=== PATIENT | female | born 1960 | race Caucasian/White ===

== ENCOUNTER → 2016-09-07 | Outpatient (CLI) | payer MEDICAID ==
[~2016-09-07] MED LIST: IOPAMIDOL (ISOVUE 370) 100 ML BTL IV ONE
== END ==
LOC: FIMAGING 12:03
PROVIDERS: ATTEND Internal Medicine Hematology & Oncology
DX: T82.828A Fibrosis due to vascular prosthetic devices, implants and grafts, initial encounter (principal)
CPT/HCPCS: Q9967

== ENCOUNTER → 2017-08-17 | Outpatient (CLI) | payer MEDICAID | LOC: FIMAGING 14:37 | PROVIDERS: ATTEND Internal Medicine Hematology & Oncology | DX: Z12.31 Encounter for screening mammogram for malignant neoplasm of breast (principal); Z85.3 Personal history of malignant neoplasm of breast; Z90.12 Acquired absence of left breast and nipple ==

== ENCOUNTER → 2018-02-10 | Outpatient (CLI) | payer MEDICAID | LOC: BMCIMAGING 10:24 | PROVIDERS: ATTEND Physician Assistant | DX: M50.322 Other cervical disc degeneration at C5-C6 level (principal); M51.34 Other intervertebral disc degeneration, thoracic region; M46.92 Unspecified inflammatory spondylopathy, cervical region ==

== ENCOUNTER 2018-02-22 21:49 | Inpatient (IN) | payer MEDICAID ==
--- NOTE | 2018-02-22 22:08 | EDPHY ---
H & P Stated Complaint: MRI today, unstable spine Time Seen by Provider: 02/22/18 21:59 HPI/ROS: CHIEF COMPLAINT: Spinal metastases HISTORY OF PRESENT ILLNESS: 57-year-old female history of left breast cancer arrives via private vehicle after she received the results of her MRI this evening. She notes several months of progressive bilateral upper extremity pain , weakness with extension of the right elbow, outpatient MRI of the cervical thoracic spine ordered patient was contacted this evening by her primary care provider informing her of bony metastatic disease with pathologic fracture at C7 with epidural metastatic disease noted, told to go to the ER for evaluation admission. She notes no acute complaints, no neck pain. No chest pain. No dyspnea. No headache. No fever or chills. PRIMARY CARE PROVIDER: Nichole Rosa PA-C REVIEW OF SYSTEMS: 10 systems reviewed and negative with the exception of the elements mentioned in the history of present illness PAST MEDICAL & SURGICAL HISTORY: Breast cancer. SOCIAL HISTORY: nonsmoker PHYSICAL EXAM (Prior to examination, patient consented to physical exam, hands were washed and my usual and customary physical exam procedures followed) 1) GENERAL: Well-developed, well-nourished, alert and oriented. Appears to be in no acute distress. 2) HEAD: Normocephalic, atraumatic. Symmetrical faces 3) HEENT: Pupils equal, round, reactive to light bilaterally. Sclera anicteric. Symmetrical faces 4) NECK: Full range of motion, no meningeal signs. 5) LUNGS: Clear auscultation bilaterally, no wheezes, no rhonchi, no retractions. 6) HEART: Regular rate and rhythm, no murmur, no heave, no gallop. 7) ABDOMEN: No guarding, no rebound, no focal tenderness, negative McBurney's, negative Rich's, negative Rovsing's, negative peritoneal sign, 8) MUSCULOSKELETAL: Moving all extremities, no focal areas of tenderness, no obvious trauma. No peripheral edema or discoloration. 9) BACK: No CVA tenderness, no midline vertebral tenderness, no fluctuance, no step-off, no obvious trauma, no visual or palpable abnormality. 10) SKIN: No rash, no petechiae. 11) Psychiatric: Patient is oriented X 3, there is no agitation. 12)_ NEURO: Awake, alert, and oriented to person, place and time. Answers questions appropriately. Right elbow extension weakness noted. DIFFERENTIAL DIAGNOSIS: In no particular order including but not limited to pathologic fracture, metastatic disease, stable cervical fracture - Personal History Tetanus Vaccine Date: < 10 years - Medical/Surgical History Hx Asthma: No Hx Chronic Respiratory Disease: No Hx Diabetes: No Hx Cardiac Disease: No Hx Renal Disease: No Hx Cirrhosis: No Hx Alcoholism: No Hx HIV/AIDS: No Other PMH: breast CA, hypothyroid - Social History Smoking Status: Never smoked Constitutional: Initial Vital Signs Temperature (C) 36.5 C 02/22/18 21:52 Heart Rate 95 02/22/18 21:52 Respiratory Rate 20 02/22/18 21:52 Blood Pressure 134/86 H 02/22/18 21:52 O2 Sat (%) 93 02/22/18 21:52 O2 Delivery Mode Room Air Allergies/Adverse Reactions: No Known Allergies Allergy (Unverified 10/14/15 13:17) Home Medications: Medication Instructions Recorded Herbals/Supplements -Info Only 1 each PO AD 10/23/11 Ibuprofen [Motrin 600 mg (RX)] 600 mg PO DAILY PRN 10/23/11 Levothyroxine [Synthroid 137 mcg 137 mcg PO Q2D 10/23/11 (RX)] Levothyroxine [Synthroid 150 mcg 150 mcg PO Q2D 10/23/11 (RX)] Pharmacy Completed 10/23/11 10/23/11 Medical Decision Making ED Course/Re-evaluation: 10:06 p.m.: [place] J collar placed upon entry into the room. Patient noted to have weakness right elbow extension. I reviewed her imaging studies. Will plan on admission to hospitalist with consultation with Neurosurgery 10:25 p.m.: Consultation with Dr. Wicho Moody Neurosurgery who will consult. Will admit patient to hospitalist service. Care of patient under supervision of secondary supervising physician Dr Alicea with whom I discussed case. 10:30 p.m.: Consultation with hospitalist Dr. Massey who will admit - Data Points Laboratory Results: Laboratory Results 02/22/18 22:15 02/22/18 22:15 02/22/18 02/22/18 02/22/18 22:15 22:15 22:15 WBC 10.27 10^3/uL H 10^3/uL (3.80-9.50) RBC 5.14 10^6/uL 10^6/uL (4.18-5.33) Hgb 14.1 g/dL g/dL (12.6-16.3) Hct 41.8 % % (38.0-47.0) MCV 81.3 fL L fL (81.5-99.8) MCH 27.4 pg L pg (27.9-34.1) MCHC 33.7 g/dL g/dL (32.4-36.7) RDW 15.9 % H % (11.5-15.2) Plt Count 130 10^3/uL L 10^3/uL (150-400) MPV 10.0 fL fL (8.7-11.7) Neut % (Auto) 55.8 % % (39.3-74.2) Lymph % (Auto) 34.0 % % (15.0-45.0) [place] % (Auto) 7.0 % % (4.5-13.0) Eos % (Auto) 2.3 % % (0.6-7.6) Baso % (Auto) 0.4 % % (0.3-1.7) Nucleat RBC Rel Count 0.0 % % (0.0-0.2) Absolute Neuts (auto) 5.73 10^3/uL 10^3/uL (1.70-6.50) Absolute Lymphs (auto) 3.49 10^3/uL H 10^3/uL (1.00-3.00) Absolute Monos (auto) 0.72 10^3/uL 10^3/uL (0.30-0.80) Absolute Eos (auto) 0.24 10^3/uL 10^3/uL (0.03-0.40) Absolute Basos (auto) 0.04 10^3/uL 10^3/uL (0.02-0.10) Absolute Nucleated RBC 0.00 10^3/uL 10^3/uL (0-0.01) Immature Gran % 0.5 % % (0.0-1.1) Immature Gran # 0.05 10^3/uL 10^3/uL (0.00-0.10) PT 12.6 SEC SEC (12.0-15.0) INR 0.92 (0.83-1.16) APTT 24.6 SEC SEC (23.0-38.0) Sodium 138 mEq/L mEq/L (135-145) Potassium 4.1 mEq/L mEq/L (3.5-5.2) Chloride 106 mEq/L mEq/L (97-110) Carbon Dioxide 23 mEq/l mEq/l (22-31) Anion Gap 9 mEq/L mEq/L (6-14) BUN 10 mg/dL mg/dL (7-23) Creatinine 0.7 mg/dL mg/dL (0.6-1.0) Estimated GFR > 60 Glucose 120 mg/dL H mg/dL (70-100) Calcium 9.3 mg/dL mg/dL (8.5-10.4) Medications Given: Discontinued Medications Hydrocodone Bitart/Acetaminophen ([place] 5/325) 2 tab PO EDNOW ONE Stop: 02/22/18 22:33 Last Admin: 02/22/18 22:36 Dose: 2 tab Departure - Departure Disposition: [facility] Inpatient Acute Clinical Impression: Fracture of cervical spine, Fracture of thoracic spine Pathologic compression fracture of spine Qualifiers: Encounter type: initial encounter Qualified Code(s): M48.50XA - Collapsed vertebra, not elsewhere classified, site unspecified, initial encounter for fracture Condition: Fair
[2018-02-22 22:22] LABS: PLATELET COUNT 130 10^3/uL (150-400)
[2018-02-22 22:30] LABS: INR 0.92 (0.83-1.16); PROTIME(PATIENT) 12.6 SEC (12.0-15.0)
[2018-02-22] MEDS ORDERED: HYDROCODONE/APAP 5/325 TAB PO ONE (22:32)
[2018-02-22] MEDS ORDERED: ACETAMINOPHEN 325 MG TAB PO PRN (22:36)
[2018-02-22] MEDS ORDERED: ONDANSETRON DISINTEGRATING 4 MG TAB PO PRN (22:36)
[2018-02-22] MEDS ORDERED: NS 1,000 ML IV SCH (22:45)
--- NOTE | 2018-02-22 23:25 | PDGENHP ---
History and Physical - Chief Complaint Neck pain, arm pain - History of Present Illness Source-patient provides history appears reliable. EMR was reviewed and case discussed with ED provider. Oncologist - Dr. Meza HPI - this is a pleasant 57-year-old female with past medical history significant for left breast cancer last chemo a year ago, hypothyroidism, remote history of traumatic C1, T1, T2 fracture who presents emergency department today with complaints of ongoing bilateral upper neck, back and extremity pain for the past month. Patient underwent a outpatient MRI that was significant for diffuse bony Mets and C7 pathologic fracture. Patient was referred to the emergency department. She denies any fevers chills. She has had ongoing weight loss secondary declined appetite over the past month since onset of her acute neck pain. She denies any nausea, vomiting , abdominal pain , dysuria, hematuria or focal deficits. Patient denies any night sweats. History Information - Allergies/Home Medication List Allergies/Adverse Reactions: No Known Allergies Allergy (Unverified 10/14/15 13:17) Home Medications: Herbals/Supplements -Info Only 1 each PO AD 10/23/11 [Last Taken 10/22/11] Ibuprofen [Motrin 600 mg (RX)] 600 mg PO DAILY PRN 10/23/11 [Last Taken 10/22/11 ] Levothyroxine [Synthroid 137 mcg (RX)] 137 mcg PO Q2D 10/23/11 [Last Taken 10/21] Levothyroxine [Synthroid 150 mcg (RX)] 150 mcg PO Q2D 10/23/11 [Last Taken 10/20] Pharmacy Completed 10/23/11 10/23/11 [Last Taken 10/23/11] I have personally reviewed and updated: family history, medical history, social history, surgical history - Past Medical History Additional medical history: Breast cancer. Hypothyroidism. Traumatic C1, T1, T2 fracture after fall from rock climbing 2016 - Surgical History Additional surgical history: IPC ostomy repair x3. Left breast mastectomy. 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 - Family History Additional family history: Pre DM - Social History Smoking Status: Never smoked Alcohol Use: Occasionally Drug Use: Marijuana (Occasional) Additional social history: Patient is is 3 adult children. Cor status- full. Review of Systems Review of Systems: ROS: 10pt was reviewed & negative except for what was stated in HPI & below Constitutional: Reports: weight loss (See HPI). Denies: chills, fever EENMT: Reports: no symptoms Cardiac: Reports: no symptoms Respiratory: Reports: no symptoms Gastrointestinal: Reports: no symptoms Genitourinary: Reports: no symptoms Muscolosketal: Reports: back pain, joint pain, neck pain Skin: Reports: no symptoms Neurological: Reports: paresthesia (Bilateral arms.) Hematologic/Lymphatic: Reports: no symptoms Immunologic/Allergy: Reports: no symptoms Physical Exam Physical Exam: Selected Entries 02/22/18 21:52 Heart Rate 95 Respiratory 20 Rate O2 Sat (%) 93 Temperature (C) 36.5 C Blood Pressure 134/86 H Mean Arterial 102 H Pressure (MAP) Temp Pulse Resp BP Pulse Ox 36.8 C 80 18 137/91 H 91 L 02/22/18 23:05 02/22/18 23:05 02/22/18 23:05 02/22/18 23:05 02/22/18 23:05 Constitutional: no apparent distress, uncomfortable, other (NAD. Patient is lying quietly on gurney. and 2 children are at bedside. Patient does appear uncomfortable but no acute distress.) Eyes: PERRL (Slightly decreased reactivity light bilaterally and symmetric.), anicteric sclera, EOMI, No scleral injection Ears, Nose, Mouth, Throat: dry mucous membranes, other (No oropharyngeal erythema or exudates. No nasal discharge.), No poor dentition Cardiovascular: regular rate and rhythym, no murmur, rub, or gallop, pulses symmetric bilaterally, other (Left breast absent.), No edema Peripheral Pulses: 1+: dorsalis-pedis (R), dorsalis-pedis (L) Respiratory: no respiratory distress, no rales or rhonchi, clear to auscultation , No expiratory wheeze, No inspiratory crackles, No respiratory distress Gastrointestinal: normoactive bowel sounds, soft, non-tender abdomen, no palpable masses, No distension Genitourinary: no bladder tenderness, No alvarez in urethra Skin: warm, normal color, no rashes or abrasions, No rash Musculoskeletal: other (Patient is able to move upper and lower extremities while lying in gurney. Application Chemist strength is slightly diminished 4 to 5/5 in the upper lower extremities.), No generalized weakness Neurologic: AAOx3, sensation intact bilaterally, other (Grossly nonfocal exam.) , No facial droop Psychiatric: interacting appropriately, not anxious, not encephalopathic, thought process linear, other (Patient thought process, content, questions are appropriate. Patient is pleasant and cooperative.), No anxious, No depressed Lab Data & Imaging Review 02/22/18 22:15 02/22/18 22:15 WBC 10.27 10^3/uL (3.80-9.50) H 02/22/18 22:15 RBC 5.14 10^6/uL (4.18-5.33) 02/22/18 22:15 Hgb 14.1 g/dL (12.6-16.3) 02/22/18 22:15 Hct 41.8 % (38.0-47.0) 02/22/18 22:15 MCV 81.3 fL (81.5-99.8) L 02/22/18 22:15 MCH 27.4 pg (27.9-34.1) L 02/22/18:15 MCHC 33.7 g/dL (32.4-36.7) 02/22/18 22:15 RDW 15.9 % (11.5-15.2) H 02/22/18 22:15 Plt Count 130 10^3/uL (150-400) L 02/22/18:15 MPV 10.0 fL (8.7-11.7) 02/22/18 22:15 Neut % (Auto) 55.8 % (39.3-74.2) 02/22/18:15 Lymph % (Auto) 34.0 % (15.0-45.0) 02/22/18 22:15 [place] % (Auto) 7.0 % (4.5-13.0) 02/22/18 22:15 Eos % (Auto) 2.3 % (0.6-7.6) 02/22/18:15 Baso % (Auto) 0.4 % (0.3-1.7) 02/22/18 22:15 Nucleat RBC Rel Count 0.0 % (0.0-0.2) 02/22/18 22:15 Absolute Neuts (auto) 5.73 10^3/uL (1.70-6.50) 02/22/18 22:15 Absolute Lymphs (auto) 3.49 10^3/uL (1.00-3.00) H 02/22/18 22:15 Absolute Monos (auto) 0.72 10^3/uL (0.30-0.80) 02/22/18 22:15 Absolute Eos (auto) 0.24 10^3/uL (0.03-0.40) 02/22/18 22:15 Absolute Basos (auto) 0.04 10^3/uL (0.02-0.10) 02/22/18 22:15 Absolute Nucleated RBC 0.00 10^3/uL (0-0.01) 02/22/18 22:15 Immature Gran % 0.5 % (0.0-1.1) 02/22/18:15 Immature Gran # 0.05 10^3/uL (0.00-0.10) 02/22/18 22:15 PT 12.6 SEC (12.0-15.0) 02/22/18 22:15 INR 0.92 (0.83-1.16) 02/22/18 22:15 APTT 24.6 SEC (23.0-38.0) 02/22/18 22:15 Sodium 138 mEq/L (135-145) 02/22/18 22:15 Potassium 4.1 mEq/L (3.5-5.2) 02/22/18 22:15 Chloride 106 mEq/L (97-110) 02/22/18 22:15 Carbon Dioxide 23 mEq/l (22-31) 02/22/18 22:15 Anion Gap 9 mEq/L (6-14) 02/22/18 22:15 BUN 10 mg/dL (7-23) 02/22/18 22:15 Creatinine 0.7 mg/dL (0.6-1.0) 02/22/18 22:15 Estimated GFR > 60 02/22/18 22:15 Glucose 120 mg/dL (70-100) H 02/22/18 22:15 Calcium 9.3 mg/dL (8.5-10.4) 02/22/18 22:15 Imaging Review: MRI of the Cervical Spine (Without Contrast) History: Pain, M54.6 upper extremity paresthesias, history of breast cancer in 2016 Technique: Sagittal T1, FSE T2 and STIR images. Axial FSE T2 and GRE images. Comparison: Plain films February 10, 2018 Findings: There is diffuse abnormal bone marrow signal in the C5-C6-C7 T1 and T2 vertebral bodies and posterior elements consistent with metastatic disease. There is more limited metastatic disease in T3-T4 and T5 vertebral bodies. There is a gibbus compression of the C7 vertebral body associated with bulging posteriorly into the neural canal and abnormal circumferential soft tissue thickening around the neural canal at this level, possibly eccentric to the left of midline. There is minimal CSF remaining in front of or behind the cervical cord at this level. There is 3- 4 mm of spondylolisthesis at C6-C7. It is difficult to exclude a possible left locked facet or subluxation at C5-C6. There is no evidence for cervical cord edema or hemorrhage. CSF remains in front of and behind the cord above and below this level. Incidentally noted are moderate size right-sided, off midline degenerative osteophytes at C5-C6. Impression: Bony metastatic disease worst between C5 and T2, with a pathologic severe compression fracture at C7 associated with epidural metastatic disease and a localized spondylolisthesis with abnormally aligned facets. Recommend neurosurgical consultation and MRI with contrast for further evaluation. Results discussed with Dr. Vanessa Meléndez at 2:34 PM. MRI Thoracic Spine without contrast History: Pain, M54.6, history of breast cancer Technique: Sagittal T1, FSE T2 and STIR imaging is performed. Axial T1 and FSE T2 fat-suppressed imaging is performed. Comparison: MRI of the cervical spine done previously. Findings: At the level of the C7 compression deformity soft tissue surrounds the cervical cord and fills the left neural foramen. The left facet joints are diffusely involved at the C6-C7 level. There is extensive replacement of the T1 and T2 vertebral bodies and posterior elements. There is scattered less dominant bony metastatic disease below the T2 level involving both vertebral bodies and posterior elements. The largest vertebral body lesion is in T12 and the largest posterior element involvement is on the left involving T11. No epidural metastatic disease is identified below the T2 level. Thoracic alignment remains anatomic. There is a mild superior endplate compression deformity of T3 that is of unknown age. There are no other possibly acute thoracic compressions. There is an old Schmorl's node defect of the upper cortex of T11. Thoracic neural foramen below T2 are widely patent. CSF surrounds the cord at all levels in the thoracic region. The thoracic cord looks normal intrinsically. Impression: Scattered bony metastatic disease worst involving the cervical thoracic junction down to and including T2. Please see above. Dictated By: Esau Blankenship MD Assessment & Plan Assessment: this is a pleasant 57-year-old female with past medical history significant for left breast cancer last chemo a year ago, hypothyroidism, remote history of traumatic C1, T1, T2 fracture who presents emergency department today with complaints of ongoing bilateral upper neck, back and extremity pain for the past month. # C7 pathologic fracture - patient has been placed into a hard collar. Neurosurgery consulted and Dr. Gillespie will see the patient in the morning. # diffuse bony Mets - continue with pain control focus at this time. Patient reports that her pain is better controlled at this time. # metastatic breast cancer - Oncology consultation in the morning. Patient reports she is followed by Dr. Meza. Last reported chemotherapy was given a year ago. # thrombocytopenia - mildly decreased platelet count. Patient is not currently on any chemotherapy. Concerned that patient may also have metastatic disease to the liver. Coag studies are within normal limits. Will add on liver panel. Additional imaging once C7 fracture addressed and stabilized. Chronic medical issues #Hypothyroidism - continue levothyroxine when diet is advanced. FEN - IV fluids overnight. Patient will be made NPO pending neurosurgical evaluation and recommendations. Electrolytes are adequate in replaced p.r.n.. PPX-SCDs. Holding anticoagulation pending neurosurgery recs. Cor status-full Disposition-patient admitted to observation status at this time pending additional workup and recommendations by neurosurgery.
[2018-02-23 05:04] LABS: PLATELET COUNT 96 10^3/uL (150-400)
[2018-02-23 05:07] LABS: PROTIME(PATIENT) 13.4 SEC (12.0-15.0)
--- NOTE | 2018-02-23 09:55 | NEUSURGPN ---
Assessment/Plan: Assessment: 57 yr old F with history of breast ca and pathological C7 fx, upper extremity weakness MRI cervical shows C7 pathologic fracture with metastasis to surround vertebrae Please see full dictated consult when available Plan: -Patient has profound weakness of her right triceps 2-3/5, right 4th and 5th intrinsic/digit weakness 3/5. Discussed two options: 1. Surgery to stablize her fracture. Surgery would offer her the greatest chance of improving her strength but due to the lesions in the surrounding vertebrae-this may pose an issue with hardware placement. 2. CLINICAL SERVICES MANAGER brace-in effort to stabilize/heal fracture with time but will not address nerve involvement. -We would like Oncology to re-stage her CA to determine plan -Dr Moody will see patient as well later this morning to discuss options -Please call neurosurgery with questions/concerns Subjective: arm weakness and neck pain, in collar Objective: AxOx 4 Right triceps 2-3/5, right 4th adn 5th digits 3/5 5/5 Bilateral biceps and deltoids In [place] J collar Neuro Check Frequency: per routine Urinary Catheter in Place: No - Physician Discussed Patient with : [place] Patient Seen by : [place] Neurosurgery Physical Exam - Vitals, I&O, Labs I and O 02/22/18 02/23/18 02/24/18 05:59 05:59 05:59 Intake Total 350 Output Total 0 Balance 350 Weight 81.647 kg Intake: Oral (ml) 350 Output: Urine (ml) 0 Other: Number of Voids Toilet 1 Vital Signs Temp Pulse Resp BP Pulse Ox 36.6 C 77 14 157/96 H 97 02/23/18 08:36 02/23/18 08:36 02/23/18 08:36 02/23/18 08:36 02/23/18 08:36 Laboratory Results 02/23/18 04:43 02/23/18 04:43 ICD10 Worksheet Patient Problems: Problems Problem Status Onset Fracture of cervical spine Acute Fracture of thoracic spine Acute Pathologic compression fracture of spine Acute
--- NOTE | 2018-02-23 10:28 | HOSPPROG ---
Hospitalist Progress Note Assessment/Plan: 57yo F with left sided breast cancer now found to have C7 pathologic fracture. 1. C7 pathologic fracture: With resultant neuro deficits (right triceps, intrinsic hand muscles). No cord edema on CT. - Neurosurgery consulted. Considering surgical management if possible vs bracing - Pain controlled on current regimen 2. Left sided breast cancer: Now with metastatic disease (vertebral bodies and epidural). Followed by Dr Meza, she reports not having any scans for 1 year. Previously had chemotherapy and XRT. - Oncology consult placed 3. Thrombocytopenia: Mild. Check LFTs. Monitor. 4. Hypothyroid: Continue home LT4. VTE ppx: SCDs Code: full Dispo: Possibly switch to inpatient pending surgical eval. Subjective: Pain with movement but none when lying in bed. No trauma that she can recall to neck. Right arm/hand weakness Objective: Vital Signs Temp Pulse Resp BP Pulse Ox 36.6 C 77 14 157/96 H 97 02/23/18 08:36 02/23/18 08:36 02/23/18 08:36 02/23/18 08:36 02/23/18 08:36 Laboratory Results 02/23/18 04:43 02/23/18 04:43 02/22/18 02/23/18 02/24/18 05:59 05:59 05:59 Intake Total 350 Output Total 0 Balance 350 PT 13.4 SEC (12.0-15.0) 02/23/18 04:43 INR 1.00 (0.83-1.16) 02/23/18 04:43 - Physical Exam Constitutional: no apparent distress, appears nourished, not in pain, other ( wearing hard c-collar) Eyes: PERRL, anicteric sclera, EOMI Ears, Nose, Mouth, Throat: moist mucous membranes, hearing normal, ears appear normal, no oral mucosal ulcers Cardiovascular: regular rate and rhythym, no murmur, rub, or gallop, No edema Respiratory: no respiratory distress, no rales or rhonchi, clear to auscultation Gastrointestinal: normoactive bowel sounds, soft, non-tender abdomen, no palpable masses Genitourinary: no bladder fullness, no bladder tenderness, no renal bruits Skin: no rashes or abrasions, no fluctuance, no induration Musculoskeletal: full muscle strength, no muscle tenderness, normal joint ROM Neurologic: AAOx3, sensation intact bilaterally, weakness (right tricep) Psychiatric: interacting appropriately, not anxious, not encephalopathic, thought process linear ICD10 Worksheet Patient Problems: Problems Problem Status Onset Fracture of cervical spine Acute Fracture of thoracic spine Acute Pathologic compression fracture of spine Acute
--- NOTE | 2018-02-23 10:38 | GCON ---
CHIEF COMPLAINT: Neck pain and arm weakness. HISTORY OF PRESENT ILLNESS: The patient is a 57-year-old female with past medical history that was significant for left breast cancer in which she underwent chemo approximately 1-1/2 years ago. Her oncologist is Dr. Meza. She also has history of a fall approximately 5 years ago in which she fractured several of her cervical vertebrae. Those fractures were treated with a brace at the time and did not require any surgical intervention. The patient presented to the emergency department with progressive problems with bilateral hand weakness and underwent MRI of the cervical spine as an outpatient which was significant for diffuse bony metastasis and a C7 pathological fracture. The patient states that her left arm weakness has improved some with physical therapy, but her right arm "does not seem to work" and she is unable to move her 4th and 5th digits of the right hand. The patient has neck pain. She denies any difficulty with walking and balance and denies any incontinence issues with her bowel or bladder. REVIEW OF SYSTEMS: A 10-point review of systems was performed and negative aside from what was mentioned in the HPI. ALLERGIES: No known drug allergies. HOME MEDICATIONS: 1. Herbal supplements. 2. Ibuprofen p.r.n. 3. Levothyroxine. PAST MEDICAL HISTORY: Breast cancer, hypothyroid, traumatic C1, T1, and T2 fractures after a fall when rock climbing several years ago. 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 FAMILY HISTORY: The patient denies any breast cancer in her family history but does note that her grandfather had lung cancer but was a heavy smoker. SOCIAL HISTORY: Patient denies any alcohol use currently. She has never smoked cigarettes. She uses marijuana daily. Denies any other illicit drug use. The patient is and has been unemployed since her original diagnosis of breast cancer 1-1/2 years ago. DIAGNOSTICS LABORATORY RESULTS: White blood cell count 7.52, hemoglobin 13.7, hematocrit 42, platelets 96. PT/INR PT is 13.4 and INR 1.0. APTT is 25.2. Sodium is 138, potassium 4.0, BUN 8, creatinine 0.6, glucose 109. DIAGNOSTIC IMAGING: MRI of the cervical spine performed without contrast from an outside facility demonstrated diffuse abnormal bone marrow signal in C5-C6, C6-C7, C7-T1, and T2 vertebral bodies. There was more limited metastatic disease in T3-T4 and T5 vertebral bodies. There is a Gibbus compression fracture of the C7 vertebral body associated with bulging posteriorly into the neural canal and abnormal circumferential soft tissue thickening around the neural canal at this level. There is minimal CSF remaining in the front of or behind the cervical cord at this level. There is 3-4 mm of spondylolisthesis at C6-C7. There is no evidence for cervical cord edema or hemorrhage. PHYSICAL EXAM: VITAL SIGNS: Blood pressure is 157/96, heart rate is 77, respiratory rate is 14, oxygen saturation is 97% on 1 L nasal cannula. Temperature is 36.6 degrees Celsius. HEENT: Head is normocephalic and atraumatic. Pupils are equal, round, and reactive to light. EOMI is intact. Full visual cole by confrontation. CARDIAC AND RESPIRATORY: Deferred. GENITOURINARY, RECTAL, AND ABDOMEN: Deferred. NEUROLOGIC: The patient is awake and alert and oriented to name, place, location, date, time, and situation. Her memory is intact to immediate past and current events. Speech: No aphasia or dysphonia. Cranial nerves 2-12 are grossly intact. Motor: The patient has 2-3/5 right triceps weakness with 2-3/5 right 4th and 5th intrinsic digits weakness, mild left ironing pleater weakness 5-/5. The patient has 5/5 strength in her bilateral deltoids and biceps, iliopsoas, quadriceps, hamstrings , plantar flexion, dorsiflexion. Sensation: Grossly intact to light touch throughout all dermatomal distributions of bilateral lower extremities. Reflexes: Biceps, triceps, brachialis, and knee jerks are 3+/4+. Velez's is negative. Babinski is negative. ASSESSMENT AND PLAN: The patient is a 57-year-old female with history of breast cancer that was treated with chemotherapy approximately 1-1/2 years ago. The patient has been experiencing progressive bilateral ironing pleater weakness and underwent an MRI of the cervical spine. MRI of the cervical spine demonstrates pathological fracture of C7 with some cord compression. I spoke with the patient and her regarding the options: 1. Surgical intervention to decompress the spinal cord which may be difficult depending on bone quality However, due to the spread of the metastasis in the surrounding vertebral bodies, surgery could be risky without any solid bone for hardware placement. 2. Bracing with a FREIGHT ASSOCIATE brace. We would like Oncology to revisit the patient and establish staging of her cancer and metastasis so we can establish a plan of care. We will get a CT cervical to further evaluate bone quality. We will have Grain Merchandiser fit with FREIGHT ASSOCIATE now while we establish plan. Ok for patient to have a diet today from our standpoint. Dr. Moody will be by to speak with the patient and her later this morning to discuss her options as well. The patient was seen and examined by neurosurgical services today February 23, 2018, at 0900. Please call Neurosurgery with any questions or concerns. /[id number]/MODL MTDD
[2018-02-23] MEDS: ONDANSETRON 4 MG/2 ML VIAL IVP PRN (12:15)
[2018-02-23] MEDS: HYDROCODONE/APAP 5/325 TAB PO PRN ×2 (13:13→17:42)
[2018-02-23] MEDS: DEXAMETHASONE 4 MG TAB PO SCH (13:14)
--- NOTE | 2018-02-23 13:14 | PDMN ---
Medical Necessity Medical necessity: Pt meets INPT criteria per MD as of 02/23/18 and [facility] [place] Musculoskeletal Disease GRG (est. LOS >2 MN for ongoing eval/mgmt of C7 pathologic fracture with further tx pending; thrombocytopenia; hx breast cancer) .
--- NOTE | 2018-02-23 13:16 | PDCONSULT ---
Picking Table Worker Note: Oncology consultation note Requesting provider: Calixto Santos Outpatient oncologist: Niko Meza Reason for consultation: Presumed metastatic breast cancer History of present illness: This is a very pleasant 57-year-old female with history of triple positive T4bN3B stage IIIC hormone receptor positive HER2 positive breast cancer who was admitted for presumed metastatic disease. She initially was diagnosed in October of 2005 and was treated by my partner Dr. Niko Meza. She underwent a modified radical mastectomy and axillary lymph node dissection January of 2016. She is found to have T4b disease with 11 lymph nodes positive. She received chemotherapy with docetaxel carboplatin Herceptin and Perjeta starting June 2016. She received 6 cycles. She received adjuvant radiation therapy in August of 2016. She received adjuvant Herceptin up until December of 2016 and did not complete an entire year of therapy. She also was on Arimidex in the adjuvant setting which she did not continue which she states is due to insurance coverage. She was last seen in our clinic December of 2016 and then was lost to follow-up. She presents to [facility] with a 2 month history of pain along the thoracic spine alongside weakness in the bilateral arms the right greater than the left. She also endorses symptoms of numbness in the bilateral hands. She was placed on prednisone by primary care provider and states that her symptoms slowly improved. She had an MRI of the cervical and thoracic spine that was concerning for diffuse skeletal metastasis. She did have a C7 compression fracture with bulging into the neural canal. She denies any headaches or changes in vision. She denies any chest pain or shortness of breath. She denies abdominal pain nausea or vomiting. Past medical and surgical history: History of stage IIIC triple positive breast cancer as per above status post mastectomy as per above. Hypothyroidism Ostomy repair Breast yacht hand removal 2 months Social history: She smokes marijuana occasionally. She smokes no tobacco. She used to work in the technology sector. Family history: There is some history of lung cancer within the family. No history of breast cancer. Allergies: No known drug allergies Medications: Reviewed in [employer] Review of systems: 12 point review of systems was taken was otherwise negative Physical examination: Temp Pulse Resp BP Pulse Ox 36.5 C 74 16 162/100 H 90 L 02/23/18 12:00 02/23/18 12:00 02/23/18 12:02/23/18 12:02/23/18 12:00 O2 (L/minute) 1 General: Pleasant-appearing female appears in no acute distress, at bedside she has her , son and daughter. HEENT: Cervical neck brace in place and, oropharynx is clear extraocular movements are intact pupils equal round reactive to light Cardiovascular: Regular rhythm no murmurs gallops rubs Pulmonary: Clear to auscultation bilaterally Abdomen: Soft nontender nondistended bowel sounds are present no hepatosplenomegaly Skin: No skin lesions Lymph: No lymphadenopathy Neuro: Cranial 2 through 12 are intact, right upper extremity with 3/5 weakness with triceps extension, left upper extremity 4/5 weakness with triceps extension, the remainder of the neurological exam is unremarkable Extremities: No cyanosis clubbing or edema Psych: Appropriate affect 02/22/2018 MRI of the cervical and thoracic spine demonstrates diffuse marrow signal concerning for metastatic disease. There is compression fracture of the C7 vertebral body with bulging posteriorly into neuro foraminal canal. Abnormal circumferential soft tissue thickening around the neural canal. WBC 7.52 10^3/uL (3.80-9.50) 02/23/18 04:43 RBC 4.95 10^6/uL (4.18-5.33) 02/23/18 04:43 Hgb 13.7 g/dL (12.6-16.3) 02/23/18 04:43 Hct 42.0 % (38.0-47.0) 02/23/18 04:43 MCV 84.8 fL (81.5-99.8) 02/23/18 04:43 MCH 27.7 pg (27.9-34.1) L 02/23/18 04:43 MCHC 32.6 g/dL (32.4-36.7) 02/23/18 04:43 RDW 15.9 % (11.5-15.2) H 02/23/18 04:43 Plt Count 96 10^3/uL (150-400) L 02/23/18 04:43 MPV 10.6 fL (8.7-11.7) 02/23/18 04:43 Neut % (Auto) 51.4 % (39.3-74.2) 02/23/18 04:43 Lymph % (Auto) 36.0 % (15.0-45.0) 02/23/18 04:43 [place] % (Auto) 7.4 % (4.5-13.0) 02/23/18 04:43 Eos % (Auto) 3.5 % (0.6-7.6) 02/23/18 04:43 Baso % (Auto) 0.8 % (0.3-1.7) 02/23/18 04:43 Nucleat RBC Rel Count 0.0 % (0.0-0.2) 02/23/18 04:43 Absolute Neuts (auto) 3.86 10^3/uL (1.70-6.50) 02/23/18 04:43 Absolute Lymphs (auto) 2.71 10^3/uL (1.00-3.00) 02/23/18 04:43 Absolute Monos (auto) 0.56 10^3/uL (0.30-0.80) 02/23/18 04:43 Absolute Eos (auto) 0.26 10^3/uL (0.03-0.40) 02/23/18 04:43 Absolute Basos (auto) 0.06 10^3/uL (0.02-0.10) 02/23/18 04:43 Absolute Nucleated RBC 0.00 10^3/uL (0-0.01) 02/23/18 04:43 Immature Gran % 0.9 % (0.0-1.1) 02/23/18 04:43 Immature Gran # 0.07 10^3/uL (0.00-0.10) 02/23/18 04:43 PT 13.4 SEC (12.0-15.0) 02/23/18 04:43 INR 1.00 (0.83-1.16) 02/23/18 04:43 APTT 25.2 SEC (23.0-38.0) 02/23/18 04:43 Sodium 138 mEq/L (135-145) 02/23/18 04:43 Potassium 4.0 mEq/L (3.5-5.2) 02/23/18 04:43 Chloride 109 mEq/L (97-110) 02/23/18 04:43 Carbon Dioxide 22 mEq/l (22-31) 02/23/18 04:43 Anion Gap 7 mEq/L (6-14) 02/23/18 04:43 BUN 8 mg/dL (7-23) 02/23/18 04:43 Creatinine 0.6 mg/dL (0.6-1.0) 02/23/18 04:43 Estimated GFR > 60 02/23/18 04:43 Glucose 109 mg/dL (70-100) H 02/23/18 04:43 Calcium 8.8 mg/dL (8.5-10.4) 02/23/18 04:43 Total Bilirubin 0.2 mg/dL (0.1-1.4) 02/23/18 04:43 Conjugated Bilirubin 0.1 mg/dL (0.0-0.5) 02/23/18 04:43 Unconjugated Bilirubin 0.1 mg/dL (0.0-1.1) 02/23/18 04:43 AST 21 IU/L (14-46) 02/23/18 04:43 ALT 29 IU/L (9-52) 02/23/18 04:43 Alkaline Phosphatase 124 IU/L (38-126) 02/23/18 04:43 Total Protein 7.1 g/dL (6.3-8.2) 02/23/18 04:43 Albumin 3.5 g/dL (3.5-5.0) 02/23/18 04:43 Assessment and plan: Liliana is a 57-year-old female with history of triple positive breast cancer who was admitted for concerns of metastatic disease. 1. Concern for metastatic disease to the spine: I reviewed her imaging with neurosurgery Dr. Moody. He will review her CT scan of the spine that was done today as well. We discussed whether there is any role of surgical intervention given her weakness in the right upper extremity. I also recommend obtaining CT of the chest abdomen pelvis to fully stage her. If there is no role of surgery , I will have Radiation Oncology consult on her tomorrow. In the interim also started on low-dose dexamethasone 4 mg. -F/u with JANA -If no surgical intervention, will need to discuss with rad/onc and IR for biopisy. -CT C/A/P 2. History triple positive breast cancer: Please see 1. My concern currently is that she has metastatic disease given that she had high risk disease when she was 1st diagnosed. 3. Cancer related pain: She is receiving adequate analgesics. All questions were answered. The family voiced understanding the plan.
[2018-02-23] MEDS ORDERED: IOPAMIDOL (ISOVUE-300) 100 ML BTL ONE (15:19)
[2018-02-24] MEDS: ONDANSETRON 4 MG/2 ML VIAL IVP PRN ×2 (02:13→08:11)
[2018-02-24] MEDS: LORazepam 0.5 MG TAB PO PRN ×2 (05:45→22:28)
--- NOTE | 2018-02-24 09:21 | SOAPPROG ---
SOAP Progress Note Assessment/Plan: Assessment: Liliana is a 57-year-old female with history of triple positive breast cancer who now presents with metastatic disease. 1. Metastatic cancer: I have reviewed her MRI and CT imaging with Neurosurgery alongside Radiation Oncology. There is no role for surgery at this point in her disease. She will initiate palliative radiation for pain control later this week. Will have her obtain a biopsy to confirm receptor status if this is truly recurrence of her metastatic breast cancer. I reviewed with her her CT imaging that shows pulmonary nodules, an indeterminate liver lesion, and obviously skeletal metastasis. If this is triple positive disease, one consideration would be docetaxel, Herceptin, and Perjeta. She could receive Herceptin and Perjeta while receiving radiation therapy. 2. Cancer related pain: She does have relief with hydrocodone which she will needed discharge. 3. History of triple positive breast cancer: Please see my original consultation. 02/24/18 09:19 Subjective: Feeling well today. Does feel slightly depressed given the underlying diagnosis. Continues to have pain in the upper thoracic area. Ten point review of system was obtained was otherwise negative list stated above. Objective: Vital Signs Temp Pulse Resp BP Pulse Ox 36.3 C 87 16 143/96 H 96 02/24/18 08:06 02/24/18 08:06 02/24/18 08:06 02/24/18 08:06 02/24/18 08:06 Laboratory Results 02/24/18 05:05 02/23/18 02/24/18 02/25/18 05:59 05:59 05:59 Intake Total 2924 Balance 2924 PT 13.4 SEC (12.0-15.0) 02/23/18 04:43 INR 1.00 (0.83-1.16) 02/23/18 04:43 General: Pleasant-appearing female appears in no acute distress conversant HEENT: Oropharynx is clear extra movements are intact pupils equal round reactive to light Pulmonary: Clear to auscultation bilaterally Cardiovascular: Regular rate and rhythm no murmurs gallops or rubs Abdomen: Soft nontender nondistended bowel sounds are present no hepatosplenomegaly Neuro: Persistent weakness with triceps extension right greater than left. Skin: No skin lesions Psych: Depressed affect ICD10 Worksheet Patient Problems: Problems Problem Status Onset Fracture of cervical spine Acute Fracture of thoracic spine Acute Pathologic compression fracture of spine Acute
--- NOTE | 2018-02-24 09:25 | NEUSURGPN ---
Assessment/Plan: Assessment: 57 yr old F with history of breast ca and pathological C7 fx, upper extremity weakness MRI cervical shows C7 pathologic fracture with metastasis to surround vertebrae Plan: -Patient has weakness of her right triceps 3-4/5, right 4th and 5th intrinsic/ digit weakness 3-4/5. -CT cervical shows diffuse metastasis, CT CAP shows pulmonary nodules, liver mass -Dr Moody viewed CT and will discuss options with Oncology -Flash Designer to fit with BUSINESS ANALYST INTERN today -Please call neurosurgery with questions/concerns Subjective: continued neck pain Objective: AxOx 4 Right triceps 3-4/5, right 4th and 5th digits 4/5 5/5 Bilateral biceps and deltoids In [place] J collar Neuro Check Frequency: per routine Urinary Catheter in Place: No - Physician Discussed Patient with Dr.: Moody Neurosurgery Physical Exam - Vitals, I&O, Labs I and O 02/23/18 02/24/18 02/25/18 05:59 05:59 05:59 Intake Total 2924 Balance 2924 Intake: Oral (ml) 1500 IV Intake (ml) 1424 Other: Intake Quantity Yes Sufficient Number of Voids Toilet 2 Number of Stools Toilet 1 Vital Signs Temp Pulse Resp BP Pulse Ox 36.3 C 87 16 143/96 H 96 02/24/18 08:06 02/24/18 08:06 02/24/18 08:06 02/24/18 08:06 02/24/18 08:06 Laboratory Results 02/24/18 05:05 ICD10 Worksheet Patient Problems: Problems Problem Status Onset Fracture of cervical spine Acute Fracture of thoracic spine Acute Pathologic compression fracture of spine Acute
[2018-02-24] MEDS ORDERED: NALOXONE HCL 0.4 MG/ML INJ IVP PRN (10:19)
[2018-02-24] MEDS ORDERED: fentaNYL 100 MCG/2 ML INJ IVP PRN (10:19)
[2018-02-24] MEDS ORDERED: MIDAZOLAM 2 MG/2 ML VIAL IVP PRN (10:19)
[2018-02-24] MEDS ORDERED: FLUMAZENIL 0.5 MG/5 ML MDV IVP PRN (10:19)
[2018-02-24] MEDS ORDERED: NS 1,000 ML IV SCH (10:30)
[2018-02-24] MEDS: DEXAMETHASONE 4 MG TAB PO SCH (10:33)
[2018-02-24] MEDS: HYDROCODONE/APAP 5/325 TAB PO PRN (10:48)
[2018-02-24] MEDS ORDERED: PROMETHAZINE HCL 25 MG/ML INJ IVP PRN (11:24)
--- NOTE | 2018-02-24 13:02 | HOSPPROG ---
Hospitalist Progress Note Assessment/Plan: # suspected metastatic breast cancer with diffuse osseous mets, liver lesion, pulm nodules - will get IR biopsy today - brace today per NSG - cont norco and decadron for pain # hypothyroid - synthroid # mild thrombocytopenia Subjective: feels somewhat sad today; we discussed her upcoming biopsy; no new neurological sx Objective: Vital Signs Temp Pulse Resp BP Pulse Ox 36.5 C 72 16 136/91 H 97 02/24/18 11:42 02/24/18 11:42 02/24/18 11:42 02/24/18 11:42 02/24/18 11:42 Laboratory Results 02/24/18 05:05 02/23/18 02/24/18 02/25/18 05:59 05:59 05:59 Intake Total 2924 Output Total 100 Balance 2924 -100 PT 13.4 SEC (12.0-15.0) 02/23/18 04:43 INR 1.00 (0.83-1.16) 02/23/18 04:43 chart reviewed discussed with Dr Parish imaging reviewed - Physical Exam Constitutional: uncomfortable Cardiovascular: regular rate and rhythym, no murmur, rub, or gallop Respiratory: no respiratory distress, no rales or rhonchi, clear to auscultation Gastrointestinal: soft, non-tender abdomen, no palpable masses, No guarding, No rebound ICD10 Worksheet Patient Problems: Problems Problem Status Onset Fracture of cervical spine Acute Fracture of thoracic spine Acute Pathologic compression fracture of spine Acute
--- NOTE | 2018-02-24 14:20 | ASMTCMCOM ---
CM Note CM Note Notes: Patient admitted with neck, arm, and back pain. Imaging shows bony mets and a pathologic C7 fracture. She has a history of breast cancer, last treated with chemo a year ago. Oncology, neurosurg, and PT ordered. Patient is normally independent, lives with and 3 kids. Discharge needs TBD. Case Management will follow. Date Signed: 02/23/2018 12:11 PM Electronically Signed By:Sydney Jiménez RN
[2018-02-24] MEDS ORDERED: MIDAZOLAM 2 MG/2 ML VIAL ONE (14:30)
[2018-02-24] MEDS ORDERED: fentaNYL 100 MCG/2 ML INJ ONE (14:30)
[2018-02-24] MEDS ORDERED: NALOXONE HCL 0.4 MG/ML INJ ONE (14:30)
[2018-02-24] MEDS ORDERED: FLUMAZENIL 0.5 MG/5 ML MDV IVP ONE (14:30)
[2018-02-24] MEDS ORDERED: IBUPROFEN 600 MG TAB PO PRN (14:59)
[2018-02-24] MEDS ORDERED: HYDROCODONE/APAP 5/325 TAB PO PRN (14:59)
[2018-02-24] MEDS ORDERED: LIDOCAINE 1% 300 MG/30 ML SDV ONE (15:50)
--- NOTE | 2018-02-24 17:23 | PDPROPOC ---
Sedation Plan of Care ASA Classification: ASA 3 Mallampati Score: Class 2 Mallampati Reference Image:
--- NOTE | 2018-02-24 17:23 | PDRADPN ---
Radiology Procedure Note Date of Procedure: 02/24/18 Radiologist: Yessica Foley Anesthesia: IV Sedation Pre-op Diagnosis: osseous lesions Post-op Diagnosis: same Procedure: T10 soft tissue mass biopsy using CT Inf/Abcess present in the surg proc area at time of surgery?: No
[2018-02-24] MEDS: LEVOTHYROXINE 150 MCG TAB PO SCH (19:41)
[2018-02-25] MEDS: LEVOTHYROXINE 150 MCG TAB PO SCH (04:48)
[2018-02-25 05:20] LABS: PLATELET COUNT 169 10^3/uL (150-400)
[2018-02-25 08:15] VITALS: BP 154/85
--- NOTE | 2018-02-25 09:07 | NEUSURGPN ---
Assessment/Plan: Assessment: 57 yr old F with history of breast ca and pathological C7 fx, upper extremity weakness MRI cervical shows C7 pathologic fracture with metastasis to surround vertebrae Plan: -CT cervical shows diffuse osseous metastasis, CT CAP shows pulmonary nodules, liver mass -Dr Moody has discussed patient with Oncology. No surgical treatment recommended. Will keep patient in ECONOMIC RESEARCH ASSISTANT/collar and follow up in 4 weeks with xrays. -Patient received ECONOMIC RESEARCH ASSISTANT collar and [place] -Cervical xrays without retropulsion -Neurosurgery will sign off, please contact us with any questions/concerns Discussed patient with Dr Moody Subjective: No new complaints, understands plan of care Objective: AxOx 4 Right triceps 3-4/5, right 4th and 5th digits 4/5 5/5 Bilateral biceps and deltoids In [place] J collar Neuro Check Frequency: per routine Urinary Catheter in Place: No - Physician Discussed Patient with Dr.: Moody Neurosurgery Physical Exam - Vitals, I&O, Labs I and O 02/24/18 02/25/18 02/26/18 05:59 05:59 05:59 Intake Total 2924 1375 Output Total 100 Balance 2924 1275 Intake: Oral (ml) 1500 400 IV Intake (ml) 1424 IV Infused (ml) 975 Ns 1,000 ml @ 100 mls/hr 975 IV CONT JANINE Rx#: [id number] Output: Emesis (ml) 100 Other: Intake Quantity Yes Sufficient Number of Voids Toilet 2 3 Number of Stools Toilet 1 1 Vital Signs Temp Pulse Resp BP Pulse Ox 36.5 C 85 16 154/85 H 96 02/25/18 08:00 02/25/18 08:00 02/25/18 08:00 02/25/18 08:00 02/25/18 08:00 Laboratory Results 02/25/18 04:48 02/25/18 04:48 ICD10 Worksheet Patient Problems: Problems Problem Status Onset Fracture of cervical spine Acute Fracture of thoracic spine Acute Pathologic compression fracture of spine Acute
[2018-02-25] MEDS: DEXAMETHASONE 4 MG TAB PO SCH (09:16)
[2018-02-25] MEDS: HYDROCODONE/APAP 5/325 TAB PO PRN ×2 (09:19→12:48)
--- NOTE | 2018-02-25 10:46 | GDS ---
CONSULTATIONS: 1. Neurosurgery. 2. Oncology. ALL DIAGNOSES: 1. Likely new diagnosis of metastatic breast cancer. 2. Hypothyroid. 3. Mild thrombocytopenia. 4. Mild leukocytosis. HOSPITAL COURSE: This is a 57-year-old female who has a history of breast cancer, who had recently h ad worsening of neck, back and extremity pain over the last month. She had an outpatient MRI, which showed significant bony mets, as well as a C7 pathologic fracture. She was seen by Neurosurgery, who recommended a nonoperative course. She has been recommended to wear a hard collar. She has been gi americo these. Neurosurgery would like her to follow up with Dr. Moody in 4 weeks for followup imaging. She underwent an IR-guided biopsy of a bony lesion. Pathology is pending at the time of discharge. She was seen by Oncology, who recommends following up after pathology is available with Dr. Meza, he r primary oncologist. They can decide on chemotherapy at that point. She will be set up to undergo palliative radiation on discharge. She has been given Decadron, as well as [place] to control her pain , which has been adequately controlled. BILLING: I spent more than 30 minutes on the day of discharge coordinating care. /[id number]/MODL
--- NOTE | 2018-02-25 13:00 | ASMTLACE ---
LACE Length of stay for Answers: 2 days current admission Comorbidities - select Answers: Any tumor (including all that apply lymphoma or leukemia) Other Notes: hypothyroidism # of Emergency department Answers: 1-2 visits in the last 6 months Score: 6 Date Signed: 02/25/2018 12:59 PM Electronically Signed By:Stephanie Gamez RN
--- NOTE | 2018-02-25 13:04 | ASMTCMCOM ---
CM Note CM Note Notes: Patient plan of care reviewed in am rounds. 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 She has been fitted with a brace and is to have radiation therapy. Biopsy performed yesterday, She has a good support system. Jin zhu applied for for 300.00 dollars. She elects to have outpatient PT and OT and has a prescription for therapy. Appointment at [facility] this afternoon. CM available should other needs arise. plan: Dc to home with family support. Date Signed: 02/25/2018 01:03 PM Electronically Signed By:Stephanie Gamez RN
--- NOTE | 2018-02-25 14:49 | ASDISCHSUM ---
Discharge Information Plan Status: Medically Cleared to Leave: Discharge Date:02/25/2018 02:01 PM D/C Disposition: ADT D/C Disposition:Home, Routine, Self-Care Projected Discharge Date:02/25/2018 11:00 AM Transportation at D/C: Discharge Delay Reason: Follow-Up Date:02/25/2018 11:00 AM Discharge Slot: Final Diagnosis: Placement Information Referral Type:Palliative Care Referral ID:[id number] Provider Name:[facility] ([facility]) Address 1:[address] [place] Address 2: City:[place] Selection Factors: State:[place] Patient Contact Information Contact Name:JERAMIE Relationship: Address:[address] Work Phone: [facility] Alternate Phone: State/Zip Code:[place] [address] Email: Financial Information Financial Class:Medicaid Primary Plan Desc:MEDICAID HEALTH FIRST MD IP Primary Plan Number:[id number] Secondary Plan Desc: Secondary Plan Number: Assessment Information [facility] CM Progress Note CM Note CM Note Notes: Patient admitted with neck, arm, and back pain. Imaging shows bony mets and a pathologic C7 fracture. She has a history of breast cancer, last treated with chemo a year ago. Oncology, neurosurg, and PT ordered. Patient is normally independent, lives with and 3 kids. Discharge needs TBD. Case Management will follow. Date Signed: 02/23/2018 12:11 PM Electronically Signed By:Sydney Jiménez RN LACE [facility]ANNY Length of stay for Answers: 2 days current admission Comorbidities - select Answers: Any tumor (including all that apply lymphoma or leukemia) Other Notes: hypothyroidism # of Emergency department Answers: 1-2 visits in the last 6 months Score: 6 Date Signed: 02/25/2018 12:59 PM Electronically Signed By:Stephanie Gamez RN [facility] CM Progress Note CM Note CM Note Notes: Patient plan of care reviewed in am rounds. 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 She has been fitted with a brace and is to have radiation therapy. Biopsy performed yesterday, She has a good support system. Jin lewjeffrey applied for for 300.00 dollars. She elects to have outpatient PT and OT and has a prescription for therapy. Appointment at [facility] this afternoon. CM available should other needs arise. plan: Dc to home with family support. Date Signed: 02/25/2018 01:03 PM Electronically Signed By:Stephanie Gamez RN Intervention Information
--- NOTE | 2018-02-25 18:34 | GCON ---
PALLIATIVE MEDICINE CONSULT DATE OF CONSULTATION: 02/25/2018 CHIEF COMPLAINT: Dr. Lakhwinder Hernandez requests goals of care conversation and assistance with symptom management. HISTORY OF PRESENT ILLNESS: This is a 57-year-old woman who was diagnosed with breast cancer originally in January of 2016. She underwent a mastectomy. In the spring and summer of 2016 she had radiation therapy and chemotherapy. Over the past few months, she has had increased back pain. She thought this was because of an director of accounting she had placed in her chest wall, in preparation for breast replacement/augmentation. She decided to have that removed approximately 2 months ago, and her pain has persisted. Her primary care provider ordered an MRI, and her metastatic disease was found. Yesterday she had a biopsy done of a lesion in her spine. Pathology remains pending. This was done at [facility]. The patient reports improvement in her pain since being in the hospital. She attributes this most to the start of the dexamethasone. She feels she has needed to use her as needed pain medications far less often. She did receive 2 tablets of 5/325 hydrocodone/acetaminophen at 9 a.m. this morning and prior to that, she had not had a dose since 11 a.m. yesterday. She denies problems with constipation and states her last bowel movement was 2 days ago. When she has become constipated on pain medicines previously she uses a probiotic drink at home and is satisfied with that plan. In fact, she says her last bowel movement here in the hospital was somewhat loose. She states her appetite has come back with a vengeance. However, during the time when she was having severe pain at home, she was losing weight. The pain is located primarily in her right posterior shoulder as well as along the right side of her upper spine. 5 minutes of activity greatly worsens the pain. She was seen by Neurosurgery in the hospital and has been given a neck and back brace. She does experience numbness and tingling in her hands and feels this has slightly improved with the use of a back brace as well. She recalls that she has been told where the concerning lesions are in her body but she cannot remember. She does feel somewhat foggy with the use of pain medicines. REVIEW OF SYSTEMS: As indicated in the HPI. In addition, she denies vision problems, headaches or problems swallowing. She is urinating fine and has not had problems with incontinence either. PAST MEDICAL HISTORY: Per review of medical records and includes a history of breast cancer diagnosed in January of 2016 as well as hypothyroidism. FAMILY HISTORY: Her biological father in his late 40s from an aneurysm. Her mother in her 60s from "multi organ failure." There is no family history of breast cancer that she is aware of. SOCIAL HISTORY: She has never smoked tobacco. She has used cannabis for pain relief as well as nausea relief when she was on chemotherapy previously. She does not drink alcohol. She would want her as her decision maker should she be unable to make decisions for herself. If he was unable to make decisions she would designate her sister as her alternate. 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 She has 3 children. Two sons who are adults and a 13-year-old daughter. They have all been very supportive of her surrounding her new medical problems. PHYSICAL EXAM: VITAL SIGNS: Indicated in the computer. She did decrease to 93 % on 2 L nasal cannula while walking the halls. GENERAL: She is alert and oriented x3. Appropriate affect and level of understanding. No apparent distress. HEENT: Normocephalic/atraumatic. There is no icterus. Pupils are symmetric. Hearing is intact. NECK: Cervical brace and thoracic brace are in place. CARDIOVASCULAR: Regular rate and rhythm without murmur, rub, or gallop. She has intact pedal pulses bilaterally. Her extremities are warm. RESPIRATORY: Anterior auscultation only around brace. Clear to auscultation at this time. ABDOMEN: Positive bowel sounds. Soft, nontender, nondistended. MUSCULOSKELETAL: Able to walk independently as well as do 3 stairs. No balance issues. Endurance is limited by pain. SIGNIFICANT LABORATORY DATA: Her white blood cell count is 12.92, hemoglobin 14.2, and platelets 165. Her cervical spine CT done on February 23 showed a pathologic compression fracture of C7 with kyphosis and grade 1 anterolisthesis of C6 on C7 and C7 and T1. CT of the chest and abdomen done on February 23 showed diffuse skeletal metastases and pulmonary nodules suspicious for metastases as well as prominent lymph nodes and a 9 mm hepatic lesion of unknown significance. ASSESSMENT AND PLAN: This is a 57-year-old woman who has a history of breast cancer and now presents with apparent metastatic cancer. Pathology of the T10 biopsy is pending. The patient recognizes the gravity of her situation but is still hopeful that with treatment she could have several years. She will have radiation mapping today as an outpatient and after Pathology provides information for Dr. Meza will follow up with him for discussion of treatment options. 1. Pain. Markedly improved with the addition of steroids. I also discussed how the steroids will likely help energy, nausea and appetite. In addition, I shared that her radiation treatment would likely further decrease her pain. Her ongoing opioid needs will be dependent on the results of radiation treatment. I let her know I would follow up with her near the end of March to assess her pain and need for long-acting or other pain plan. 2. Neuropathy. The patient shared that she did experience this with her chemotherapy treatment for breast cancer. However it had improved in her toes. I shared with her that Neurontin could be used to help with her nerve pain. She is currently experiencing nerve pain in her hands and fingers. Should the radiation not improve this, Neurontin is an option. In addition, if she were to have the same chemotherapy recommended to her that caused neuropathy initially she might consider starting this medication to minimize the nerve pain it generates. 3. Goals of care. I shared with the patient where the lesions had been seen on imaging including her bones, lungs, prominent lymph nodes and a questionable lesion in her liver. She has dabbled in medicine throughout her life as she has found it interesting. She brought up the story of Adali Garber to me. We discussed her need to consider what her goals of care would be depending upon what she learns about the severity of her cancer and treatment options. I also encouraged her to start considering what she would want her resuscitation statusto be. I shared my concern that given her spine lesions, attempts at CPR could be quite detrimental to her. I will follow up with her at her home near the end of March after she has initiated treatment if offered and to further assist with pain management as well as ongoing conversation regarding goals of care. Please note that approximately 67 minutes have been spent on this consult including chart review and discussion of case with Dr. Hernandez and interview and assessment of the patient. Copy requested to: MISTY Jacobson /[id number]/MODL MTDD
== END 2018-02-25 14:01 | disposition home or self-care (01) | DRG 343 ==
LOC: F1N 23:17 → OBSVTOIN 02-23 12:33
PROVIDERS: ADMIT Family Medicine; ATTEND Student in an Organized Health Care Education/Training Program
DX: C79.51 Secondary malignant neoplasm of bone (principal); M84.58XA Pathological fracture in neoplastic disease, other specified site, initial encounter for fracture; M43.12 Spondylolisthesis, cervical region; D69.6 Thrombocytopenia, unspecified; G62.0 Drug-induced polyneuropathy; T45.1X5A Adverse effect of antineoplastic and immunosuppressive drugs, initial encounter; R91.8 Other nonspecific abnormal finding of lung field; K76.9 Liver disease, unspecified; M54.6 Pain in thoracic spine; E03.9 Hypothyroidism, unspecified; Z85.3 Personal history of malignant neoplasm of breast; Z87.81 Personal history of (healed) traumatic fracture; Z92.21 Personal history of antineoplastic chemotherapy; Z92.3 Personal history of irradiation
CPT/HCPCS: 97163-GP; 97166-GO; G0378; G8978-GP-CJ; G8979-GP-CI; G8980-GP-CJ; J2250; J2270; J2310; J2405; J3010; L0174; Q9967

== ENCOUNTER → 2018-02-22 | Outpatient (CLI) | payer MEDICAID | LOC: FIMAGING 08:13 | PROVIDERS: ATTEND Physician Assistant | DX: C41.2 Malignant neoplasm of vertebral column (principal); M48.52XA Collapsed vertebra, not elsewhere classified, cervical region, initial encounter for fracture; M43.12 Spondylolisthesis, cervical region ==

== ENCOUNTER → 2018-03-28 | Outpatient (CLI) | payer MEDICAID | LOC: FIMAGING 10:21 | PROVIDERS: ATTEND Physician Assistant | DX: M54.2 Cervicalgia (principal); Z85.3 Personal history of malignant neoplasm of breast ==

== ENCOUNTER → 2018-05-09 | Outpatient (CLI) | payer MEDICAID | LOC: FIMAGING 09:21 ==

== ENCOUNTER → 2018-07-21 | Outpatient (CLI) | payer MEDICAID ==
[~2018-07-21] MED LIST changes: +GADOBUTROL 10 ML VIAL IVP ONE; -IOPAMIDOL (ISOVUE 370) 100 ML BTL IV ONE
== END ==
LOC: FIMAGING 12:27
PROVIDERS: ATTEND Internal Medicine Hematology & Oncology
DX: C79.31 Secondary malignant neoplasm of brain (principal); C79.51 Secondary malignant neoplasm of bone; C50.919 Malignant neoplasm of unspecified site of unspecified female breast
CPT/HCPCS: A9585